=== PATIENT | female | born 1985 | race Caucasian/White ===

== ENCOUNTER 2017-03-12 18:21 | Emergency (ER) | payer BC ==
[2017-03-12 18:48] VITALS: BP 116/75
[2017-03-12] MEDS ORDERED: Sodium Chloride 0.9% 10 ML Syringe FLUSH PRN (18:51)
--- NOTE | 2017-03-12 18:52 | EDM.PDOC ---
ED HPI - General Chief Complaint: WELL TENDER Problem Stated Complaint: 7 WEEKS PG, BLEEDING Time Seen by Provider: 03/12/17 18:43 Source of Information: Reports: Patient, RN notes reviewed - History of Present Illness INITIAL COMMENTS - FREE TEXT/NARRATIVE: 4-year-old female is in with lower abdominal and pelvic discomfort, vaginal bleeding. She does have history of IVF. She states that there were "too implants ". He had some very slight spotting a few days ago but that resolved. She then had onset of fairly heavy vaginal bleeding about 2 hours ago. Also has had some lower abdominal pelvic discomfort and cramping with some radiation to her back. States she has passed a few clots. No chest or shoulder discomfort. No shortness of breath or pleuritic-type chest discomfort.. no abnormal weakness or dizziness. - Related Data Allergies/ADRs: Allergies Allergy/AdvReac Type Severity Reaction Status Date / Time azithromycin [From Zithromax] Allergy Stomach Verified 12/09/15 10:17 Ache Home Meds: Home Meds Fenugreek Seed Extract [Fenugreek] 500 mg PO DAILY 12/09/15 [History] Multivitamin [Multivitamins] 1 tab PO DAILY 12/09/15 [History] Past Medical History - Past Health History Medical/Surgical History: Denies Medical/Surgical History Cardiovascular History: Reports: Hypertension Other Cardiovascular History: post-brian HTN, resolved. 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: Musculoskeletal History: Reports: Fracture Neurological History: Reports: Concussion, Migraines Dermatologic History: Reports: Eczema - Infectious Disease History Infectious Disease History: Reports: Chicken pox - Past Surgical History Other HEENT Surgeries/Procedures: adenoidectomy Female Surgical History: Reports: section Other Female Surgeries/Procedures: twins-21 months ago Social & Family History - Tobacco Use Smoking Status *Q: Never Smoker Second Hand Smoke Exposure: No - Caffeine Use Caffeine Use: Reports: None - Recreational Drug Use Recreational Drug Use: No ED ROS GENERAL - Review of Systems Review Of Systems: See Below Constitutional: Denies: fever, chills, diaphoresis HEENT: Reports: No symptoms Respiratory: Denies: Shortness of Breath, Pleuritic Chest Pain Cardiovascular: Denies: Chest pain GI/Abdominal: Reports: Abdominal pain (He does have lower, and pelvic discomfort ). Denies: Nausea, Vomiting : Reports: other (Severe vaginal bleeding about 2 hours ago moderately heavy with some clots) Musculoskeletal: Reports: no symptoms Skin: Reports: no symptoms Neurological: Reports: No Symptoms ED EXAM - Physical Exam Exam: See Below General Appearance: alert, anxious Throat/Mouth: Normal inspection, Normal oropharynx Head: atraumatic Neck: supple, full range of motion Respiratory/Chest: no respiratory distress, lungs clear, normal breath sounds Cardiovascular: regular rate, rhythm GI/Abdominal: other (There is mild tenderness of the lower mid pelvis, upper abdomen is soft and nontender). No: guarding, rebound (Female) Exam: Vaginal bleeding (At time of exam at about 21:20 is one very small clot in the posterior vaginal vault and a small amount of dark blood, no brisk hemorrhage at this time, no tissue visible, cervix closed). No: tissue present in cervix/vagina Extremities: normal inspection, normal range of motion. No: pedal edema Neurological: alert, oriented, no motor/sensory deficits Skin Exam: Warm, Dry, Normal color Course - Vital Signs Last Recorded V/S: Last Vital Signs Temp 98.9 F 03/12/17 18:46 Pulse 66 03/12/17 18:46 Resp 20 03/12/17 18:46 BP 116/75 03/12/17 18:46 Pulse Ox 100 03/12/17 18:46 - Orders/Labs/Meds Orders: Active Orders 24 hr Category Date Time Status Peripheral IV Care [RC] . DIRECTED Care 03/12/17 18:51 Active OB Transvaginal [US] Stat Exams 03/12/17 18:58 Taken Peripheral IV Insertion Adult [OM.PC] Stat Oth 03/12/17 18:51 Ordered Labs: Laboratory Tests 03/12/17 03/12/17 03/12/17 Range/Units 19:01 19:01 19:01 WBC 9.79 (3.98-10.04) K/mm3 RBC 4.53 (3.98-5.22) M/mm3 Hgb 13.3 (11.2-15.7) gm/L Hct 39.0 (34.1-44.9) % MCV 86.1 (79.4-94.8) fl MCH 29.4 (25.6-32.2) pg MCHC 34.1 (32.2-35.5) g/dl RDW Std Deviation 38.5 (36.4-46.3) fL Plt Count 409 H (182-369) K/mm3 MPV 9.4 (9.4-12.3) fl Neut % (Auto) 68.7 (34.0-71.1) % Lymph % (Auto) 22.6 (19.3-51.7) % Vilas % (Auto) 7.8 (4.7-12.5) % Eos % (Auto) 0.6 L (0.7-5.8) Baso % (Auto) 0.2 (0.1-1.2) % Neut # (Auto) 6.73 H (1.56-6.13) K/mm3 Lymph # (Auto) 2.21 (1.18-3.74) K/mm3 Vilas # (Auto) 0.76 H (0.24-0.36) K/mm3 Eos # (Auto) 0.06 (0.04-0.36) K/mm3 Baso # (Auto) 0.02 (0.01-0.08) K/mm3 HCG, Quant mIU/mL Urine HCG, Qual Positive (NEGATIVE) Blood Type O POSITIVE Gel Antibody Screen Negative 03/12/17 Range/Units 19:01 WBC (3.98-10.04) K/mm3 RBC (3.98-5.22) M/mm3 Hgb (11.2-15.7) gm/L Hct (34.1-44.9) % MCV (79.4-94.8) fl MCH (25.6-32.2) pg MCHC (32.2-35.5) g/dl RDW Std Deviation (36.4-46.3) fL Plt Count (182-369) K/mm3 MPV (9.4-12.3) fl Neut % (Auto) (34.0-71.1) % Lymph % (Auto) (19.3-51.7) % Vilas % (Auto) (4.7-12.5) % Eos % (Auto) (0.7-5.8) Baso % (Auto) (0.1-1.2) % Neut # (Auto) (1.56-6.13) K/mm3 Lymph # (Auto) (1.18-3.74) K/mm3 Vilas # (Auto) (0.24-0.36) K/mm3 Eos # (Auto) (0.04-0.36) K/mm3 Baso # (Auto) (0.01-0.08) K/mm3 HCG, Quant 19073.0 mIU/mL Urine HCG, Qual (NEGATIVE) Blood Type Gel Antibody Screen Meds: Medications Discontinued Medications Generic Name Dose Route Start Last Admin Trade Name Freq PRN Reason Stop Dose Admin Sodium Chloride 500 mls @ 999 mls/hr 03/12/17 19:42 03/12/17 19:48 Normal Saline IV 03/12/17 20:12 999 mls/hr .BOLUS ONE Administration Sodium Chloride 10 ml 03/12/17 18:51 03/12/17 19:38 Saline Flush FLUSH 10 ml ASDIRECTED PRN Administration Keep Vein Open - Re-Assessments/Exams Free Text/Narrative Re-Assessment/Exam: 03/12/17 21:12. Patient is resting more comfortably. She states that she did pass a fairly large clot very short time ago. After that her pain and cramping has gone away, least for now. HCG is 22,988. She states that her hCG back on March 01 was 177, March 03 419. I do have the radiology report back which does show 2 gestational sacs in the 5-1/2-6 week range. See report for details. There also is an area of echogenic focus in the lower uterine segment which may represent hemorrhage versus abnormal implantation. I did check with patient again and she states that to her knowledge there were 2 implants and she does seem very well-informed of prior procedures.\\ 21:35. Pelvic exam as documented. She continues to have no pain or cramping at this time. Discharge instructions as documented. Departure - Departure Time of Disposition: 21:32 Disposition: Home, Self-Care 01 Condition: fair Clinical Impression: First trimester , Threatened Instructions: First Trimester of , [id number], Threatened Miscarriage, [id number] Referrals: Lisseth Velasco MD [Primary Care Provider] - Forms: ED Department Discharge Additional Instructions: Rest, drink plenty of water to maintain hydration, light activity is fine as tolerated, no exertional activity recommended for now. Call clinic in the morning to try see Dr. Arias tomorrow or Friday if possible, she should get the information from this evening is ED visit. Return to ED as needed, especially if soaking more than one pad per hour for more than 2 or 3 hours or beginning to feel very weak dizzy or lightheaded. - My Orders Last 24 Hours: My Active Orders 03/12/17 18:51 Peripheral IV Care [RC] . DIRECTED Peripheral IV Insertion Adult [OM.PC] Stat 03/12/17 18:58 OB Transvaginal [US] Stat - Assessment/Plan Last 24 Hours: My Active Orders 03/12/17 18:51 Peripheral IV Care [RC] . DIRECTED Peripheral IV Insertion Adult [OM.PC] Stat 03/12/17 18:58 OB Transvaginal [US] Stat
[2017-03-12] MEDS ORDERED: Sodium Chloride 0.9% 500 ML IV ONE (19:42)
--- NOTE | 2017-03-13 10:03 | US ---
Obstetrical ultrasound first trimester (multiple gestation): Multiple real-time images were obtained transvaginally. Two gestational sacs are seen. Yolk sac appears to be present within sac B with sac A showing no definite yolk sac. No pole identified within either sac at this time. Small subchorionic hemorrhage is seen. Echogenic material is seen within the endocervical canal suspicious for small blood clot. Maternal ovaries are unremarkable. Free fluid seen within the pelvis which is felt to be incidental. Measurements: Sac A: Gestational sac: 0.82 cm - 5 weeks 3 days Sac B: Gestational sac: 1.24 cm - 5 weeks 6 days Impression: 1. Two gestational sacs. Dates as noted above. 2. Small subchorionic hemorrhage. Small blood clot within the endocervical canal. 3. No pole seen within either sac. If patient does not miscarry, recommend follow-up exam in 11 days. Diagnostic code #3 I agree with preliminary report issued by [facility] (report finalized on 03/12/17, 9:31 PM Central Time)
== END 2017-03-12 21:41 | disposition home or self-care (01) ==
LOC: JD.ED 18:21
DX: O20.0 Threatened abortion (principal); O10.911 Unspecified pre-existing hypertension complicating pregnancy, first trimester; Z98.890 Other specified postprocedural states; Z88.1 Allergy status to other antibiotic agents; Z3A.01 Less than 8 weeks gestation of pregnancy
CPT/HCPCS: 36415; 76817; 81025; 84702; 85025; 86850; 86900; 86901; 96360; 96361; 99284; J7040; J7050; 99283

== ENCOUNTER 2019-04-11 23:05 | Inpatient (IN) | payer BC ==
[2019-04-11] MEDS ORDERED: Ampicillin 2 GM in Sodium Chloride 0.9% 100 ML IV ONE (23:23)
[2019-04-11] MEDS ORDERED: Lidocaine 1% 50 ML MDV INJECT ONE (23:23)
[2019-04-11] MEDS ORDERED: Sodium Chloride 0.9% 10 ML Syringe FLUSH PRN (23:23)
[2019-04-11] MEDS ORDERED: Nalbuphine 20 MG/ML 1 ML Syringe IVPUSH PRN (23:23)
[2019-04-11] MEDS ORDERED: Lactated Ringers 1,000 ML ONE (23:24)
[2019-04-11] MEDS ORDERED: Ampicillin 2 GM AdvVial IV ONE (23:27)
[2019-04-11] MEDS ORDERED: Oxytocin/Lactated Ringers 10 UNIT/1,000 ML BAG IV SCH (23:30)
[2019-04-11] MEDS ORDERED: Bupivacaine/fentaNYL/NS 100 ML Bag EPIDUR SCH (23:45)
[2019-04-11] MEDS ORDERED: fentaNYL 100 MCG/2 ML SDV EPIDUR PRN (23:47)
[2019-04-11] MEDS ORDERED: diphenhydrAMINE 50 MG/ML SDV IVPUSH PRN (23:47)
[2019-04-11] MEDS ORDERED: ePHEDrine 50 MG/ML SDV IVPUSH PRN (23:47)
--- NOTE | 2019-04-12 00:21 | PCM.PREANE ---
Preanesthetic Assessment - Anesthesia/Transfusion/Family Hx Anesthesia History: Prior Anesthesia Reaction (nausea) Family History of Anesthesia Reaction: No Transfusion History: No Prior Transfusion(s) Type of Transfusion Reactions: Reports: Unknown - Review of Systems General: Fatigue Pulmonary: No Symptoms Cardiovascular: No Symptoms Gastrointestinal: Abdominal Pain (labor contractions) Neurological: No Symptoms Other: Reports: None - Physical Assessment Pulse: 89 O2 Sat by Pulse Oximetry: 98 Respiratory Rate: 24 Blood Pressure: 136/64 Temperature: 36.3 C Height: 1.65 m Weight: 78.557 kg ASA Class: 2 Mental Status: Alert & Oriented x3 Airway Class: Mallampati = 1 Dentition: Reports: Normal Dentition Thyro-Mental Finger Breadths: 3 Mouth Opening Finger Breadths: 3 ROM/Head Extension: Full Lungs: Clear to Auscultation, Normal Respiratory Effort Cardiovascular: Regular Rate, Regular Rhythm - Lab Values: Laboratory Last Values WBC 9.71 K/mm3 (3.98-10.04) 04/11/19 23:30 RBC 4.77 M/mm3 (3.98-5.22) 04/11/19 23:30 Hgb 14.1 gm/L (11.2-15.7) 04/11/19 23:30 Hct 41.8 % (34.1-44.9) 04/11/19 23:30 MCV 87.6 fl (79.4-94.8) 04/11/19 23:30 MCH 29.6 pg (25.6-32.2) 04/11/19 23:30 MCHC 33.7 g/dl (32.2-35.5) 04/11/19 23:30 RDW Std Deviation 44.2 fL (36.4-46.3) 04/11/19 23:30 Plt Count 333 K/mm3 (182-369) D 04/11/19 23:30 MPV 10.6 fl (9.4-12.3) 04/11/19 23:30 Blood Type O POSITIVE 04/11/19 23:30 Gel Antibody Screen Negative 04/11/19 23:30 - Allergies Allergies/Adverse Reactions: Allergies Allergy/AdvReac Type Severity Reaction Status Date / Time azithromycin [From Zithromax] Allergy Stomach Verified 04/05/19 23:17 Ache - Anesthesia Plan Pre-Op Medication Ordered: None - Acknowledgements Anesthesia Type Planned: Epidural Pt an Appropriate Candidate for the Planned Anesthesia: Yes Alternatives and Risks of Anesthesia Discussed w Pt/Guardian: Yes Pt/Guardian Understands and Agrees with Anesthesia Plan: Yes PreAnesthesia Questionnaire - Past Health History Medical/Surgical History: Denies Medical/Surgical History Cardiovascular History: Reports: Hypertension Other Cardiovascular History: post- HTN, resolved. 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: Musculoskeletal History: Reports: Fracture Neurological History: Reports: Concussion, Migraines Dermatologic History: Reports: Eczema - Infectious Disease History Infectious Disease History: Reports: Chicken Pox - Past Surgical History Female Surgical History: Reports: Section - HOME MEDS Home Medications: Home Meds Fenugreek Seed Extract [Fenugreek] 500 mg PO DAILY 12/09/15 [History] Multivitamin [Multivitamins] 1 tab PO DAILY 12/09/15 [History] - CURRENT (IN HOUSE) MEDS Current Meds: Current Medications Diphenhydramine HCl (Benadryl) 25 mg IVPUSH Q6H PRN PRN Reason: Itching Ephedrine Sulfate (Ephedrine Sulfate) 5 mg IVPUSH ASDIRECTED PRN PRN Reason: HYPOTENTSION Fentanyl (Sublimaze) 100 mcg EPIDUR Q3H PRN PRN Reason: Pain Last Admin: 04/12/19 00:11 Dose: 100 mcg Fentanyl/Bupivacaine HCl (Fentanyl/Bupivacaine/Ns 2 Mcg-0.125% 100 Ml) 100 ml EPIDUR ASDIRECTED ANJALI Last Admin: 04/12/19 00:12 Dose: 100 ml Ampicillin Sodium 1 gm/ Sodium (Chloride) 100 mls @ 200 mls/hr IV Q4H ANJALI Lactated Ringer's (Ringers, Lactated) 1,000 mls @ 100 mls/hr IV ASDIRECTED ANJALI Oxytocin/Lactated Ringer's (Pitocin In Lr 10 Units/1,000 Ml) 10 unit in 1,000 mls @ 500 mls/hr IV .CONTINUOUS ANJALI; Protocol Nalbuphine HCl (Nubain) 10 mg IVPUSH Q2H PRN PRN Reason: pain Sodium Chloride (Saline Flush) 10 ml FLUSH ASDIRECTED PRN PRN Reason: Keep Vein Open Discontinued Medications Ampicillin Sodium (Ampicillin) Confirm Administered Dose 2 gm IV .STK-MED ONE Stop: 04/11/19 23:28 Lactated Ringer's (Ringers, Lactated) Confirm Administered Dose 1,000 mls @ as directed .ROUTE .STK-MED ONE Stop: 04/11/19 23:25 Ampicillin Sodium 2 gm/ Sodium (Chloride) 100 mls @ 200 mls/hr IV ONETIME ONE Stop: 04/11/19 23:52 Lidocaine HCl (Xylocaine 1%) 50 ml INJECT ONETIME ONE Stop: 04/11/19 23:24
[2019-04-12] MEDS: Lactated Ringers 1,000 ML IV SCH ×3 (01:22→01:24)
[2019-04-12] MEDS ORDERED: Ampicillin 1 GM in Sodium Chloride 0.9% 100 ML IV SCH (03:30)
[2019-04-12] MEDS ORDERED: Ondansetron 4 MG/2 ML SDV IVPUSH ONE (04:32)
--- NOTE | 2019-04-12 05:57 | PCM.LDHP ---
L&D History of Present Illness - General Date of Service: 04/12/19 Admit Problem/Dx: Patient Status Order with Admit Dx/Problem 04/11/19 23:23 Patient Status [ADT] Routine 04/12/19 01:20 Patient Status [ADT] Routine Admission Diagnosis/Problem Admission Diagnosis/Problem 04/12/19 05:46 Judy is a 33-year-old 4 para 1022 white female at 40-3/7 weeks gestational age with an PATEL of 04/09/2019 admitted with spontaneous rupture membranes in active labor. Source of Information: Patient History Limitations: Reports: No Limitations - History of Present Illness Introduction:: Judy is a 33-year-old 4 para 1022 white female at 40-3/7 weeks gestational age with an PATEL of 04/09/2019 admitted with spontaneous rupture membranes in active labor.Her PATEL of 04/09/2019 to turn by ultrasound done on . Patient had SROM at approximately 1930 hrs. on 04/11/2019. Upon admission to Hospital patient is in active labor ana every 2-3 minutes and had made cervical change. [place] course: Patient was seen early in at 3-6/7 weeks gestational age on 07/30/2018. She was seen on a regular basis during the course of . Weight gain was from 141-175 pounds for a 34 pound weight increase. Her vital signs are stable throughout the course and fundal height growth was appropriate. Patient had at least 2 other ultrasounds during the course the on 11/23/2018 and 01/20/2019 both of which supported the initial ultrasound dating. laboratory testing blood is O+ with negative antibody screen. First hemoglobin was 12.8 and platelets are 402,000. Rubella titer showed immunity. Syphilis assay was nonreactive. Hepatitis B surface antigen nonreactive. Second trimester testing showed a hemoglobin of 11.5 g/dL with platelets of 334,000. One-hour GTT was normal at 119 mg/dL. TSH was normal at 1.45 microunits per milliliter at the time of first visit. B strep was positive. HIV assay was negative. Imaging gonorrhea both were negative. Allergies: Azithromycin Medications: 1. vitamins 2. Cough medicine with codeine when necessary 3. Zofran 8 mg as personable tablets every 8 hours when necessary for nausea 4. Magnesium by mouth 5. Valacyclovir 2000 mg 2 times per day orally when necessary for cold sore. Past medical history: 1. Elective termination of 2 2. Infertility/PCOSin vitro fertilization 3. History of anxiety Past surgical history: 1. Primary section for breech presentation with first baby presenting footling breech 2. Colonoscopy 3. Foot surgery 4. Inguinal hernia 5. Achille teeth extraction 6. Tonsillectomy and adenoidectomy age 13 Family history: mother with celiac disease. Father with asthma and prostate cancer. Brother with asthma. Maternal grandmother healthy. Maternal grandfather with bladder cancer. Paternal grandmother with ovarian cancer. Paternal grandfather with cancer involving brain and lung. Social history: patient is . is Lazaro Santizo. 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 She does not use any significant loss of alcohol, drugs or tobacco. They live in [place], [place]. Review of systems: Patient is in discomfort secondary to pain of labor. Skin: Negative Lungs: No infectious symptoms or shortness of breath Cardiovascular: No chest pain or exercise intolerance Breasts: change GI: Negative : Changes associated with Musculoskeletal: Negative Neurological: Negative In general the patient is well-developed, well-nourished, pleasant female of stated age in moderate acute distress secondary to labor. Skin is warm dry without lesions. HEENT, neck and back within normal limits. Lungs are clear with good breath sounds in all lung chou. Cardiovascular exam shows regular and rhythm without murmurs. Breast exam deferred Abdomen is gravid with fundal height consistent with term . The baby in vertex presentation Genital exam per nursing evaluation on admission2 cm., Evidence of gross spontaneous rupture membranes with clear fluid resulting. Extremities and neurological exam are grossly within normal limits. Pain Score: 10 - Related Data Allergies/Adverse Reactions: Allergies Allergy/AdvReac Type Severity Reaction Status Date / Time azithromycin [From Zithromax] Allergy Stomach Verified 04/05/19 23:17 Ache Home Medications: Home Meds Fenugreek Seed Extract [Fenugreek] 500 mg PO DAILY 12/09/15 [History] Multivitamin [Multivitamins] 1 tab PO DAILY 12/09/15 [History] Past Medical History - Past Health History Medical/Surgical History: Denies Medical/Surgical History Cardiovascular History: Reports: Hypertension Other Cardiovascular History: post-pauline HTN, resolved. 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: Musculoskeletal History: Reports: Fracture Other Musculoskeletal History: repaired Neurological History: Reports: Concussion, Migraines Dermatologic History: Reports: Eczema - Infectious Disease History Infectious Disease History: Reports: Chicken Pox - Past Surgical History Female Surgical History: Reports: Section Social & Family History - Family History Family Medical History: Noncontributory - Tobacco Use Smoking Status *Q: Never Smoker Second Hand Smoke Exposure: No - Caffeine Use Caffeine Use: Reports: None - Recreational Drug Use Recreational Drug Use: No H&P Review of Systems - Review of Systems: Review Of Systems: See Below L&D Exam - Exam Exam: See Below - Vital Signs Vital Signs: Last Vital Signs Temp 36.3 C 04/12/19 00:20 Pulse 89 04/12/19 00:20 Resp 24 H 04/12/19 00:20 BP 136/64 04/12/19 00:20 Pulse Ox 98 04/12/19 00:20 Weight: 78.557 kg - Patient Data Lab Results Last 24 hrs: Laboratory Results - last 24 hr 04/11/19 04/11/19 Range/Units 23:30 23:30 WBC 9.71 (3.98-10.04) K/mm3 RBC 4.77 (3.98-5.22) M/mm3 Hgb 14.1 (11.2-15.7) gm/L Hct 41.8 (34.1-44.9) % MCV 87.6 (79.4-94.8) fl MCH 29.6 (25.6-32.2) pg MCHC 33.7 (32.2-35.5) g/dl RDW Std Deviation 44.2 (36.4-46.3) fL Plt Count 333 D (182-369) K/mm3 MPV 10.6 (9.4-12.3) fl Blood Type O POSITIVE Gel Antibody Screen Negative Result Diagrams: 04/11/19 23:30 Problem List Initiated/Reviewed/Updated: Yes Orders Last 24hrs: Active Orders 24 hr Category Date Time Status Patient Status [ADT] Routine ADT 04/11/19 23:23 Active Patient Status [ADT] Routine ADT 04/12/19 01:20 Active Activity as Tolerated [RC] PFP Care 04/11/19 23:23 Active Communication Order [RC] ASDIRECTED Care 04/11/19 23:23 Active Communication Order [RC] ASDIRECTED Care 04/11/19 23:47 Active Cooling Warming Measures [RC] ASDIRECTED Care 04/11/19 23:47 Active Non Stress Test [RC] PER UNIT ROUTINE Care 04/11/19 23:23 Active Notify Provider [RC] ASDIRECTED Care 04/11/19 23:47 Active Notify Provider [RC] PFP Care 04/11/19 23:23 Active Notify Provider [RC] PRN Care 04/11/19 23:23 Active Peripheral IV Care [RC] . DIRECTED Care 04/11/19 23:23 Active Pulse Oximetry [RC] ASDIRECTED Care 04/11/19 23:47 Active Urinary Catheter Assessment [RC] ASDIRECTED Care 04/11/19 23:23 Active Vital Signs [RC] PER UNIT ROUTINE Care 04/11/19 23:23 Active RAPID PLASMA REAGIN,RPR [CHEM] Routine Lab 04/11/19 23:30 Received Ampicillin 1 gm Med 04/12/19 03:30 Active Sodium Chloride 0.9% [Normal Saline] 100 ml IV Q4H Bupivacaine/fentaNYL/NS [fentaNYL/Bupivacaine/NS 2 MCG- Med 04/11/19 23:45 Active 0.125% 100 ML] 100 ml EPIDUR ASDIRECTED Lactated Ringers [Ringers, Lactated] 1,000 ml Med 04/11/19 23:30 Active IV ASDIRECTED Nalbuphine [Nubain] Med 04/11/19 23:23 Active 10 mg IVPUSH Q2H PRN Oxytocin/Lactated Ringers [Pitocin in LR 10 Units/1,000 Med 04/11/19 23:30 Active ML] 10 unit in 1,000 ml IV .CONTINUOUS Sodium Chloride 0.9% [Saline Flush] Med 04/11/19 23:23 Active 10 ml FLUSH ASDIRECTED PRN diphenhydrAMINE [Benadryl] Med 04/11/19 23:47 Active 25 mg IVPUSH Q6H PRN ePHEDrine [ePHEDrine sulfate] Med 04/11/19 23:47 Active 5 mg IVPUSH ASDIRECTED PRN fentaNYL [Sublimaze] Med 04/11/19 23:47 Active 100 mcg EPIDUR Q3H PRN Electronic Heart Tones Ext w TOCO [WOMSER] Oth 04/11/19 23:23 Ordered Routine Electronic Heart Tones Internal [WOMSER] Per Unit Ot 04/11/19 23:23 Ordered Routine Peripheral IV Insertion Adult [OM.PC] Routine Ot 04/11/19 23:23 Ordered Resuscitation Status Routine Resus Stat 04/11/19 23:23 Ordered Medication Orders Diphenhydramine HCl (Benadryl) 25 mg IVPUSH Q6H PRN PRN Reason: Itching Ephedrine Sulfate (Ephedrine Sulfate) 5 mg IVPUSH ASDIRECTED PRN PRN Reason: HYPOTENTSION Fentanyl (Sublimaze) 100 mcg EPIDUR Q3H PRN PRN Reason: Pain Last Admin: 04/12/19 00:11 Dose: 100 mcg Fentanyl/Bupivacaine HCl (Fentanyl/Bupivacaine/Ns 2 Mcg-0.125% 100 Ml) 100 ml EPIDUR ASDIRECTED ANJALI Last Admin: 04/12/19 00:12 Dose: 100 ml Ampicillin Sodium 1 gm/ Sodium (Chloride) 100 mls @ 200 mls/hr IV Q4H ANJALI Last Admin: 04/12/19 02:59 Dose: 200 mls/hr Lactated Ringer's (Ringers, Lactated) 1,000 mls @ 100 mls/hr IV ASDIRECTED ANJALI Last Admin: 04/12/19 01:24 Dose: 100 mls/hr Infusion: 04/12/19 01:24 Dose: 100 mls/hr Admin: 04/12/19 01:23 Dose: 100 mls/hr Infusion: 04/12/19 01:23 Dose: 100 mls/hr Admin: 04/12/19 01:22 Dose: 100 mls/hr Oxytocin/Lactated Ringer's (Pitocin In Lr 10 Units/1,000 Ml) 10 unit in 1,000 mls @ 500 mls/hr IV .CONTINUOUS ANJALI; Protocol Nalbuphine HCl (Nubain) 10 mg IVPUSH Q2H PRN PRN Reason: pain Sodium Chloride (Saline Flush) 10 ml FLUSH ASDIRECTED PRN PRN Reason: Keep Vein Open Assessment/Plan Comment:: 1. 3/7 week intrauterine , spontaneous rupture membranes with clear fluid, active labor, normal progression of labor. 2. History of previous section for twin gestation with first baby presenting footling breech. Patient desiring trial of labor after section for vaginal after section. Procedure, risks, benefits, precautions to be taken all discussed with patient in detail. She appears to understand and has signed consent. 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 3. Group B strep positive status. Patient has received ampicillin prophylaxis 4. History of hemorrhage after section 5. Patient plans to breast-feed 6. Rubella immune 7. Syphilis titer is negative 8. History of oral herpes. Has been on valacyclovir in the past. No evidence of lesions by history exam at this time. Plan: 1. Anticipate successful . Patient has IV access established. Has epidural in place with adequate analgesia. labs have been done. Consent for trial labor after section for vaginal after section and for repeat have been signed. Patient will be monitored continuously in labor. 2. Routine labor care. 3. Support breast-feeding incision 4. RPR upon admission.
[2019-04-12] MEDS ORDERED: Bupivacaine 0.25% 10 ML SDV ONE (06:00)
--- NOTE | 2019-04-12 06:08 | PCM.SN ---
- Free Text/Narrative Note: Judy is a 33-year-old 4 now para 2021 white female admitted with spontaneous rupture membranes occurring at approximately 1930 hrs. on 04/11/2019. In active labor upon admission. Patient had an epidural for labor and analgesia. She progressed from 2 cm upon admission to complete by approximately 0400 hrs. on 04/12/2019. Judy began pushing and delivered a viable, garrison, female infant with Apgars of 8 and 9, weight of 3660 g (8 pounds 1.1 ounce), a length of 21.5 inches in a right occiput anterior position at 0519 hrs. on 2018. Baby was placed on mom's abdomen. Nose and mouth were bulb suctioned. Pitocin was rapidly infused to increase uterine tone and decreased likelihood of bleeding. Cord was locked pulsate times approximately 2 minutes and then was clamped 2 and cut by the baby's father. Cord blood was obtained. The umbilical cord had 3 vessels within it. A first- degree perineal laceration was apparent and was repaired with 3-0 Monocryl with 2 [id number] sutures. Patient tolerated this well. Epidural analgesia was used for perineal anesthesia. Placenta delivered in a Sanchez fashion, appeared intact and complete and was discarded per patient desire. Patient plans to breast-feed. Estimated blood loss was 100 mL. Condition: Good.
[2019-04-12] MEDS ORDERED: Docusate Sodium 100 MG Cap PO PRN (06:17)
[2019-04-12] MEDS ORDERED: Lanolin 100% Cream 7 GM Tube TOP PRN (06:17)
[2019-04-12] MEDS ORDERED: Acetaminophen 325 MG Tab PO PRN (06:17)
[2019-04-12] MEDS ORDERED: Benzocaine/Menthol 20%-0.5% Spray 56 GM Canister TOP PRN (06:17)
[2019-04-12] MEDS ORDERED: Witch Hazel Medicated Pads 40/Jar TOP PRN (06:17)
--- NOTE | 2019-04-12 09:04 | PCM48HPAN ---
Post Anesthesia Note - EVALUATION WITHIN 48HRS OF ANESTHETIC Vital Signs in Normal Range: Yes Patient Participated in Evaluation: Yes Respiratory Function Stable: Yes Airway Patent: Yes Cardiovascular Function Stable: Yes Hydration Status Stable: Yes Pain Control Satisfactory: Yes Nausea and Vomiting Control Satisfactory: Yes Mental Status Recovered: Yes (very pleased.) Pulse Rate: 89 Resp Rate: 24 Temperature: 97.3 F Blood Pressure: 136/64
[2019-04-12] MEDS: Prenatal Multivitamin with Calcium/Folic Acid/Iron Tab PO SCH (10:37)
[2019-04-12] MEDS: Ibuprofen 600 MG Tab PO PRN ×3 (10:37→20:00)
[2019-04-13] MEDS: Ibuprofen 600 MG Tab PO PRN (02:22)
--- NOTE | 2019-04-13 05:59 | PCM.DCSUM1 ---
Discharge Summary - Hospital Course Free Text/Narrative:: Judy is a 33-year-old 4 now para 2021 white female admitted with spontaneous rupture membranes occurring at approximately 1930 hrs. on 04/11/2019. In active labor upon admission. Patient had an epidural for labor and analgesia. She progressed from 2 cm upon admission to complete by approximately 0400 hrs. on 04/12/2019. Judy began pushing and delivered a viable, garrison, female infant with Apgars of 8 and 9, weight of 3660 g (8 pounds 1.1 ounce), a length of 21.5 inches in a right occiput anterior position at 0519 hrs. on 2018. Baby was placed on mom's abdomen. Nose and mouth were bulb suctioned. Pitocin was rapidly infused to increase uterine tone and decreased likelihood of bleeding. Cord was locked pulsate times approximately 2 minutes and then was clamped 2 and cut by the baby's father. Cord blood was obtained. The umbilical cord had 3 vessels within it. A first- degree perineal laceration was apparent and was repaired with 3-0 Monocryl with 2 [id number] sutures. Patient tolerated this well. Epidural analgesia was used for perineal anesthesia. Placenta delivered in a Sanchez fashion, appeared intact and complete and was discarded per patient desire. Patient plans to breast-feed. Estimated blood loss was 100 mL. patient is done well. She is nursing without problems, voiding without concerns and has minimal lochia. She is desiring discharge home today. Condition: Good. Diagnosis: Stroke: No - Discharge Data Discharge Date: 04/13/19 Discharge Disposition: Home, Self-Care 01 Condition: Good - Patient Instructions Diet: Regular Diet as Tolerated (nursing diet with increased calories and calcium as recommended) Activity: As Tolerated (No intercourse or tampons until bleeding resolves) Driving: May Drive Today Showering/Bathing: May Shower (May take a bath) Notify Provider of: Fever, Increased Pain, Swelling and Redness, Nausea and/or Vomiting - Discharge Plan Home Medications: Home Meds Fenugreek Seed Extract [Fenugreek] 500 mg PO DAILY 12/09/15 [History] Multivitamin [Multivitamins] 1 tab PO DAILY 12/09/15 [History] Acetaminophen [Tylenol] 650 mg PO Q4H PRN tablet 04/13/19 [Rx] Ibuprofen [Motrin] 600 mg PO Q4H PRN tablet 04/13/19 [Rx] Referrals: Adilia Arias MD [Primary Care Provider] - ([facility] .) - Discharge Summary/Plan Comment DC Time >30 min.: No Discharge Summary/Plan Comment: Discharge instructions: 1. Discharge home 2. Diet, activity and follow-up discussed with patient. Recommend nursing diet with increased calories and calcium. 3. Precautions given concern increased pain, bleeding, temperature, signs/ symptoms of DVT/PE. 4. Medications per home medication was printed, discussed with and given to the patient. 5. Return to clinic-Dr. Arias at [facility] in 4-6 weeks. Diagnosis: Term -delivered Condition: Good - Patient Data Vitals - Most Recent: Last Vital Signs Temp 36.8 C 04/13/19 03:15 Pulse 65 04/13/19 03:15 Resp 18 04/13/19 03:15 BP 110/64 04/13/19 03:15 Pulse Ox 97 04/13/19 03:15 Weight - Most Recent: 78.557 kg I&O - Last 24 hours: Intake & Output 04/12/19 04/12/19 04/13/19 14:59 22:59 06:59 Intake Total 0 Output Total 200 Balance -200 Lab Results - Last 24 hrs: Laboratory Results - last 24 hr 04/11/19 Range/Units 23:30 RPR Non-reactive (NONREACTIVE) Med Orders - Current: Current Medications Acetaminophen (Tylenol) 650 mg PO Q4H PRN PRN Reason: mild pain or fever Benzocaine/Menthol (Dermoplast Pain Relief [employer]) 0 gm TOP ASDIRECTED PRN PRN Reason: Perineal Comfort Measure Last Admin: 04/12/19 10:38 Dose: 1 spray Docusate Sodium (Colace) 100 mg PO BID PRN PRN Reason: Constipation Emollient Ointment (Lansinoh Hpa) 0 gm TOP ASDIRECTED PRN PRN Reason: Sore Nipples Ibuprofen (Motrin) 600 mg PO Q4H PRN PRN Reason: Mild pain or fever Last Admin: 04/13/19 02:22 Dose: 600 mg Prenat Multivit/Nance/Iron/Folic Ac ( Plus Iron) 1 each PO DAILY [facility] Last Admin: 04/12/19 10:37 Dose: 1 each Witch Adela (Tucks) 1 pad TOP ASDIRECTED PRN PRN Reason: Pain Last Admin: 04/12/19 10:37 Dose: 1 pad Discontinued Medications Ampicillin Sodium (Ampicillin) Confirm Administered Dose 2 gm IV .[facility] ONE Stop: 04/11/19 23:28 Last Admin: 04/12/19 06:15 Dose: Not Given Bupivacaine HCl (Sensorcaine-Mpf 0.25%) 10 ml .ROUTE .[facility] ONE Stop: 04/12/19 06:01 Diphenhydramine HCl (Benadryl) 25 mg IVPUSH Q6H PRN PRN Reason: Itching Ephedrine Sulfate (Ephedrine Sulfate) 5 mg IVPUSH ASDIRECTED PRN PRN Reason: HYPOTENTSION Fentanyl (Sublimaze) 100 mcg EPIDUR Q3H PRN PRN Reason: Pain Last Admin: 04/12/19 00:11 Dose: 100 mcg Fentanyl/Bupivacaine HCl (Fentanyl/Bupivacaine/Ns 2 Mcg-0.125% 100 Ml) 100 ml EPIDUR ASDIRECTED [facility] Last Admin: 04/12/19 00:12 Dose: 100 ml Lactated Ringer's (Ringers, Lactated) Confirm Administered Dose 1,000 mls @ as directed .ROUTE .[facility] ONE Stop: 04/11/19 23:25 Last Admin: 04/12/19 06:16 Dose: Not Given Ampicillin Sodium 2 gm/ Sodium (Chloride) 100 mls @ 200 mls/hr IV ONETIME ONE Stop: 04/11/19 23:52 Last Admin: 04/12/19 01:25 Dose: 200 mls/hr Ampicillin Sodium 1 gm/ Sodium (Chloride) 100 mls @ 200 mls/hr IV Q4H [facility] Last Admin: 04/12/19 02:59 Dose: 200 mls/hr Lactated Ringer's (Ringers, Lactated) 1,000 mls @ 100 mls/hr IV ASDIRECTED [facility] Last Admin: 04/12/19 01:24 Dose: 100 mls/hr Oxytocin/Lactated Ringer's (Pitocin In Lr 10 Units/1,000 Ml) 10 unit in 1,000 mls @ 500 mls/hr IV .CONTINUOUS ANJALI; Protocol Last Admin: 04/12/19 05:20 Dose: 500 mls/hr Lidocaine HCl (Xylocaine 1%) 50 ml INJECT ONETIME ONE Stop: 04/11/19 23:24 Last Admin: 04/12/19 06:16 Dose: Not Given Nalbuphine HCl (Nubain) 10 mg IVPUSH Q2H PRN PRN Reason: pain Ondansetron HCl (Zofran) 4 mg IVPUSH ONETIME ONE Stop: 04/12/19 04:33 Last Admin: 04/12/19 04:37 Dose: 4 mg Sodium Chloride (Saline Flush) 10 ml FLUSH ASDIRECTED PRN PRN Reason: Keep Vein Open
[2019-04-13 10:07] VITALS: BP 113/76
[2019-04-13] MEDS: Prenatal Multivitamin with Calcium/Folic Acid/Iron Tab PO SCH (10:09)
== END 2019-04-13 11:52 | disposition home or self-care (01) | DRG 560 ==
LOC: JD.OB 23:05 → JD.OBCHECK 23:05 → JD.OB 23:23 → OBSVTOIN 04-12 05:19 → JD.OB 04-12 05:20
PROVIDERS: ADMIT Obstetrics & Gynecology; ATTEND Obstetrics & Gynecology
PROC: 10E0XZZ Delivery of Products of Conception, External Approach (ICD-10-PCS; principal; 2019-04-12)
PROC: 0HQ9XZZ Repair Perineum Skin, External Approach (ICD-10-PCS; 2019-04-12)
PROC: 6A550ZT Pheresis of Cord Blood Stem Cells, Single (ICD-10-PCS; 2019-04-12)
PROC: 00HU33Z Insertion of Infusion Device into Spinal Canal, Percutaneous Approach (ICD-10-PCS; 2019-04-12)
DX: O34.219 Maternal care for unspecified type scar from previous cesarean delivery (principal); N85.8 Other specified noninflammatory disorders of uterus; O99.824 Streptococcus B carrier state complicating childbirth; O70.0 First degree perineal laceration during delivery; Z3A.40 40 weeks gestation of pregnancy; Z37.0 Single live birth; Z88.1 Allergy status to other antibiotic agents
CPT/HCPCS: 36415; 51701; 51702; 59025; 59409; 85027; 86592; 86850; 86900; 86901; A9270-GY; J0290; J2405; J2590; J3010; J3490; J7030; J7120

== ENCOUNTER 2022-05-06 11:36 | Emergency (ER) | payer BC, OTHER ==
[2022-05-06 12:39] VITALS: BP 142/88; PULSE 54
[2022-05-06] MEDS ORDERED: Ketorolac 60 MG/2 ML SDV IM ONE (12:56)
== END 2022-05-06 15:26 | disposition home or self-care (01) ==
LOC: JD.ED 11:36
DX: S67.22XA Crushing injury of left hand, initial encounter (principal); I10 Essential (primary) hypertension; Z88.1 Allergy status to other antibiotic agents; W23.1XXA Caught, crushed, jammed, or pinched between stationary objects, initial encounter
CPT/HCPCS: 73130; 96372; 99283; J1885